=== PATIENT | male | born 1995 | race Asian ===

== ENCOUNTER 2018-11-29 19:46 | Inpatient (IN) | payer SELFPAY ==
[~2018-11-29] VITALS: Ht 182.9 cm; Wt 68.9 kg
--- NOTE | 2018-11-29 20:42 | NUR ---
BIBSELF C/O ABDOMINAL PAIN X3 HOURS. +VOMITTING, ALSO C/O SCROTUM SWELLING. PT AAOX4, VSS. PT SEEN & EVAL'D BY LAILA HECK. WILL CONT TO MONITOR.
[2018-11-29] MEDS ORDERED: ONDANSETRON HCL/PF 4 MG/2 ML VIAL ONE (20:44)
[2018-11-29] MEDS ORDERED: HYDROMORPHONE 1 MG/1 ML DISP.SYRIN ONE (20:44)
[2018-11-29] MEDS ORDERED: HYDROMORPHONE INJ 2 MG/ML DISP.SYRIN IV ONE (21:00)
[2018-11-29] MEDS ORDERED: IV NS 0.9% 1,000 ML BAG IV ONE (21:00)
[2018-11-29] MEDS ORDERED: ONDANSETRON HCL/PF 4 MG/2 ML VIAL IVP ONE (21:00)
--- NOTE | 2018-11-29 21:00 | NUR ---
MEDICATED PER HARVESTER OPERATOR ORDER, PT SERGEY WELL.
[2018-11-29 21:01] LABS: BASOPHILS % (AUTO) 0.2 % (0.0-2.0); EOSINOPHILS % (AUTO) 0.1 % (0.0-6.0); HEMATOCRIT 52 % (39-51); HEMOGLOBIN 17.2 g/dL (13.5-17.5); LYMPHOCYTES # (AUTO) 1.5 /CMM (0.8-4.8); LYMPHOCYTES % (AUTO) 9.3 % (20.0-44.0); MEAN CORPUSCULAR HGB CONC 33 g/dl (31.0-36.0); MEAN CORPUSCULAR VOLUME 82 fL (80-96); MONOCYTES # (AUTO) 0.9 /CMM (0.1-1.30); MONOCYTES % (AUTO) 5.5 % (2.0-12.0); NEUTROPHILS # (AUTO) 13.7 /CMM (1.8-8.9); NEUTROPHILS % (AUTO) 84.9 % (43.0-81.0); PLATELET COUNT (AUTO) 280 /CMM (150-450); RED BLOOD CELL COUNT(AUTO) 6.29 MIL/uL (4.5-6.0); WHITE BLOOD COUNT (AUTO) 16.2 K/uL (4.3-11.0)
[2018-11-29 21:11] LABS: CALCIUM, SERUM 9.7 mg/dL (8.5-10.1); CREATININE 1.1 mg/dL (0.6-1.3)
--- NOTE | 2018-11-29 23:40 | NUR ---
PT MOVED FROM BED 12 TO ER 1
--- NOTE | 2018-11-29 23:43 | NUR ---
PT RESTING, ABD PAIN 5/10 & BETTER PER PT. DENIES CP, SOB, DIZZINESS, N/V AT THIS TIME. WILL CONT TO MONITOR.
--- NOTE | 2018-11-29 23:52 | NUR ---
PT IS GOING TO CT.
--- NOTE | 2018-11-30 00:10 | NUR ---
PT RETURNED FROM CT.
--- NOTE | 2018-11-30 01:04 | NUR ---
PT APPEARS TO BE RESTING COMFORTABLY. PT'S FRIEND IS AT THE BEDSIDE.
[2018-11-30] MEDS ORDERED: PIPERACILLIN /TAZOBACTAM 3.375 G VIAL IV ONE (01:29)
[2018-11-30] MEDS ORDERED: MAGNESIUM HYDROXIDE 30 ML UDC PO PRN (01:30)
[2018-11-30] MEDS ORDERED: ACETAMINOPHEN 325 MG TABLET PO PRN (01:30)
[2018-11-30] MEDS ORDERED: Z GUARD REMEDY 2 OZ OINT TP PRN (01:30)
[2018-11-30] MEDS ORDERED: HYDROCODONE/APAP 5/325MG 1 EACH TABLET PO PRN (01:30)
[2018-11-30] MEDS ORDERED: HYDROMORPHONE 1 MG/1 ML DISP.SYRIN IV ONE (01:30)
[2018-11-30] MEDS ORDERED: ONDANSETRON HCL/PF 4 MG/2 ML VIAL IVP PRN (01:30)
[2018-11-30] MEDS ORDERED: IV D5/0.45 NACL 1,000 ML IV ONE (01:30)
[2018-11-30] MEDS ORDERED: ZOLPIDEM TARTRATE 5 MG TABLET PO PRN (01:30)
[2018-11-30] MEDS ORDERED: MAG HYDROX/AL HYDROX/SIMETH 30 ML UDC PO PRN (01:30)
[2018-11-30] MEDS ORDERED: MORPHINE SULFATE INJ 2 MG/ML DISP.SYRIN IV PRN (01:30)
[2018-11-30] MEDS ORDERED: PIPERACILLIN /TAZOBACTAM 3.375 G in IV D5W 50 ML IV ONE (01:30)
[2018-11-30] MEDS ORDERED: HYDROMORPHONE 1 MG/1 ML DISP.SYRIN ONE (01:31)
--- NOTE | 2018-11-30 01:50 | NUR ---
PT C/O NAUSEA AFTER DILAUDID ADMINISTRATION. MD AWARE. PER VERBAL MD ORDER, WILL ADMINISTER ZOFRAN 4MG IV X1 NOW
--- NOTE | 2018-11-30 01:52 | NUR ---
CALLING REPORT TO MS NURSE. PT IS GOING TO 119-2
--- NOTE | 2018-11-30 01:56 | NUR ---
REPORT GIVEN TO ZOHREH SALVADOR
--- NOTE | 2018-11-30 02:10 | NUR ---
RN MS ADMITTING NOTES RECEIVED PT VIA ANA M, PT AWAKE ALERT ORIENTED X4, BREATHING EVEN AND UNLABORED ON ROOM AIR, NO SOB OR CONGESTION. IV ACCESS ON THE L AC 20G WITH D5 1/2 NS @125ML/HR. REPORTS ABDOMINAL PAIN OF 4/10 AT THE MOMENT, SCROTUM SWELLING REPORTED TO HAVE GONE DOWN. BED IN LOWEST LOCKED POSITION, CALL LIGHT WITHIN REACH AT ALL TIMES, WILL MAINTAIN NPO. WILL CONTINUE TO MONITOR.
--- NOTE | 2018-11-30 06:11 | NUR ---
RN MS CLOSING NOTES PT REMAINS IN BED, SLEEPING EASILY AROUSED TO NAME CALL, PARTNER AT BEDSIDE. BREATHING EVEN AND UNLABORED ON ROOM AIR, NO SOB OR CONGESTION. IV ACCESS ON THE L AC 20G WITH D5 1/2 NS @125ML/HR. IN NO APPARENT PAIN OR DISCOMFORT AT THE MOMENT. BED IN LOWEST LOCKED POSITION, CALL LIGHT WITHIN REACH AT ALL TIMES, REMAINS NPO. WILL ENDORSE TO DAY NURSE FOR TOMMY
--- NOTE | 2018-11-30 07:10 | NUR ---
MS RN NOTES PATIENT IN BED ALERT ORIENTED X 4. NO ACUTE DISTRESS NOTED. BREATHING UNLABORED. NO SOB NOTED. IV ACCESS PATENT AND INTACT, NO REDNESS OR SWELLING NOTED. SAFETY MEASURES IN PLACE. CALL LIGHT WITHIN REACH. WILL CONTINUE TO MONITOR ACCORDINGLY.
[2018-11-30 08:00] VITALS: BP 109/71
[2018-11-30 08:43] LABS: CALCIUM, SERUM 8.5 mg/dL (8.5-10.1); CREATININE 1.1 mg/dL (0.6-1.3)
[2018-11-30] MEDS ORDERED: PANTOPRAZOLE 40 MG VIAL IV SCH (09:00)
[2018-11-30 09:41] LABS: HEMATOCRIT 46 % (39-51); HEMOGLOBIN 15.1 g/dL (13.5-17.5); MEAN CORPUSCULAR VOLUME 82 fL (80-96); RED BLOOD CELL COUNT(AUTO) 5.63 MIL/uL (4.5-6.0); WHITE BLOOD COUNT (AUTO) 12.3 K/uL (4.3-11.0)
[2018-11-30 09:42] LABS: BASOPHILS % (AUTO) 0.1 % (0.0-2.0); LYMPHOCYTES # (AUTO) 1.1 /CMM (0.8-4.8); LYMPHOCYTES % (AUTO) 9.1 % (20.0-44.0); MEAN CORPUSCULAR HGB CONC 33 g/dl (31.0-36.0); MONOCYTES # (AUTO) 0.9 /CMM (0.1-1.30); MONOCYTES % (AUTO) 7.6 % (2.0-12.0); NEUTROPHILS # (AUTO) 10.2 /CMM (1.8-8.9); NEUTROPHILS % (AUTO) 83.2 % (43.0-81.0); PLATELET COUNT (AUTO) 298 /CMM (150-450)
[2018-11-30] MEDS: FAMOTIDINE/PF INJ 20 MG/2 ML VIAL IV SCH ×2 (09:50→17:36)
[2018-11-30] MEDS: IV D5/0.45 NACL 1,000 ML IV PRN ×2 (09:51→18:08)
[2018-11-30 16:00] VITALS: BP 118/71
--- NOTE | 2018-11-30 19:00 | NUR ---
MS RN NOTES PATIENT IN BED ALERT ORIENTED X 4. NO ACUTE DISTRESS NOTED. BREATHING UNLABORED. NO SOB NOTED. IV ACCESS PATENT AND INTACT, NO REDNESS OR SWELLING NOTED. DUE MEDICATIONS GIVEN, NO ASE NOTED. NEEDS ATTENDED AND ANTICIPATED. SAFETY MEASURES IN PLACE. CALL LIGHT WITHIN REACH. ENDORSED TO NIGHT NURSE FOR CONTINUITY OF CARE.
--- NOTE | 2018-11-30 19:30 | NUR ---
RECEIVED PATIENT IN BED AWAKE. AO X 3, ABLE TO MAKE NEEDS KNOWN. NO ACUTE DISTRESS NOTED. MONITORED FOR PAIN. IV SITE PATENT, INTACT; IVF INFUSING ORDERED. SAFETY REMINDERS GIVEN. ON LOW BED WITH BILATERAL UPPER SIDE RAILS UP. CALL SAMPSON WITHIN EASY REACH. WILL CONTINUE TO MONITOR.
[2018-11-30 20:00] VITALS: BP 114/70
[2018-11-30] MEDS: PANTOPRAZOLE 40 MG TABLET.DR PO SCH (22:26)
[2018-12-01] MEDS: IV D5/0.45 NACL 1,000 ML IV PRN (02:16)
[2018-12-01 04:00] VITALS: BP_SYST 110; BP_SYST 114; BP_DIAS 68; BP_DIAS 70
[2018-12-01] MEDS ORDERED: PIPERACILLIN /TAZOBACTAM 3.375 G VIAL IV ONE (04:56)
[2018-12-01] MEDS ORDERED: PIPERACILLIN /TAZOBACTAM 3.375 G in IV D5W 50 ML IV SCH (05:00)
--- NOTE | 2018-12-01 06:32 | NUR ---
PATIENT ASLEEP, EASILY AROUSABLE. RESPIRATIONS EVEN. NO SIGNS OF PAIN NOTED. DUE MED GIVEN WITH NO ASE NOTED. IVF INFUSING ORDERED. NEEDS ATTENDED. SAFETY PRECAUTIONS AND COMFORT MEASURES IN PLACE. WILL GIVE REPORT TO DAY SHIFT FOR CONTINUITY OF CARE.
[2018-12-01 06:37] LABS: BASOPHILS % (AUTO) 0.3 % (0.0-2.0); EOSINOPHILS % (AUTO) 0.4 % (0.0-6.0); HEMATOCRIT 40 % (39-51); HEMOGLOBIN 13.5 g/dL (13.5-17.5); LYMPHOCYTES # (AUTO) 2.5 /CMM (0.8-4.8); LYMPHOCYTES % (AUTO) 26.3 % (20.0-44.0); MEAN CORPUSCULAR HGB CONC 33 g/dl (31.0-36.0); MEAN CORPUSCULAR VOLUME 82 fL (80-96); MONOCYTES % (AUTO) 10.7 % (2.0-12.0); NEUTROPHILS # (AUTO) 5.8 /CMM (1.8-8.9); NEUTROPHILS % (AUTO) 62.3 % (43.0-81.0); PLATELET COUNT (AUTO) 242 /CMM (150-450); RED BLOOD CELL COUNT(AUTO) 4.92 MIL/uL (4.5-6.0); WHITE BLOOD COUNT (AUTO) 9.4 K/uL (4.3-11.0)
[2018-12-01 06:47] LABS: ALBUMIN 3.2 g/dL (3.4-5.0); BILIRUBIN,TOTAL 0.6 mg/dL (0.2-1.0); CALCIUM, SERUM 8.3 mg/dL (8.5-10.1); MAGNESIUM 1.9 mg/dL (1.8-2.4); PHOSPHORUS 2.9 mg/dL (2.5-4.9); POTASSIUM 3.3 mmol/L (3.5-5.1); TOTAL PROTEIN, SERUM 6.4 g/dL (6.4-8.2)
[2018-12-01 08:00] VITALS: BP_SYST 114; BP_SYST 132; BP_DIAS 66; BP_DIAS 68; BP_DIAS 76
[2018-12-01] MEDS: PANTOPRAZOLE 40 MG TABLET.DR PO SCH (09:10)
[2018-12-01] MEDS: PIPERACILLIN /TAZOBACTAM 3.375 G in IV D5W 100 ML IV SCH ×2 (09:26→18:00)
[2018-12-01] MEDS ORDERED: POTASSIUM CL. PREMIX PERIPHER. 50 ML IV SCH (09:31)
--- NOTE | 2018-12-01 10:30 | NUR ---
PER DNP JORGE PT WILL START ON FULL LIQUID DIET AND ADVANCE TO REGULAR IF TOLERATED
--- NOTE | 2018-12-01 13:30 | NUR ---
PATIENT TOLERATED DIET WELL WITH NO PAIN
[2018-12-01] MEDS ORDERED: LANS30CA54 PO (15:04)
[2018-12-01] MEDS ORDERED: CEPH-570 PO (15:05)
[2018-12-01 16:00] VITALS: BP 109/67
--- NOTE | 2018-12-01 18:58 | NUR ---
PATIENT CLEARED FOR D/C TO HOME BY . PATIENT ALERT AND ORIENTED X4 , BREATHING UNLABORED AND EVEN ON ROOM AIR, PT TOLERATED REGULAR DIET WELL WITH NO PAIN. DISCHARGE INSTRUCTIONS AND EDUCATION PROVIDED; PATIENT VERBALIZED UNDERSTANDING. PRESCRIPTION PROVIDED, PATIENT EDUCATED. PATIENT WILL F/U WITH PCP IN 2 WEEKS. PATIENT'S INTACT. D/C PAPERS SIGHED ;ALL BELONGINGS WITH THE PATIENT. AWAITING FOR PATIENTS'S FRIEND FOR PLAY LEADER.
--- NOTE | 2018-12-01 19:25 | NUR ---
RHEOSTAT ASSEMBLER DISCHARGE NOTES: AM SHIFT ENDORSED REPORT TO ME REGARDING HIS FRIEND COMING TO PICK HIM UP FOR DISCHARGE. ALL PAPER WORK AND D/C DONE BY AM NURSE. IV AND WRIST BAND REMOVED. ALL BELONGINGS GIVEN AND D/C PAPER WORK SIGNED BY PT. PT STABLE AND IN GOOD CONDITION UPON DISCHARGE AT 1924 WHEN FRIEND CAME TO AIRPORT BAGGAGE SCREENER AND TAKE HIM HOME.
== END 2018-12-01 23:45 | disposition home or self-care (01) | DRG 391 ==
LOC: ER 19:49 → MEDSG1 11-30 01:44
PROVIDERS: ADMIT Nurse Practitioner Acute Care; ATTEND Nurse Practitioner Acute Care
DX: K29.80 Duodenitis without bleeding (principal); K85.90 Acute pancreatitis without necrosis or infection, unspecified; K59.00 Constipation, unspecified; N50.89 Other specified disorders of the male genital organs; E86.0 Dehydration
CPT/HCPCS: 36415; 76870-TC; 80048-TC; 80053-TC; 80061-TC; 83690-TC; 83735-TC; 84100-TC; 85025-TC; 85730-TC; G0378; J1170; J2270; J2405; J2543; J3480; J3490; J7050; J7060

== ENCOUNTER 2018-12-06 21:10 | Emergency (ER) | payer BC ==
[~2018-12-06] VITALS: Ht 182.9 cm; Wt 68.0 kg
[~2018-12-06 21:10] MED LIST: CEPH-570 PO; LANS30CA54 PO
--- NOTE | 2018-12-06 23:18 | NUR ---
BIBS. C/O "WAS SEEN FOR PANCREATITIS LAST WEEK, I THINK IT MIGHT BE FLARING UP. -DYSURIA" AOX4 AMBULATORY. VSS
--- NOTE | 2018-12-06 23:28 | NUR ---
URINE COLLECTED AND SENT TO LAB
[2018-12-06] MEDS ORDERED: ONDANSETRON HCL/PF 4 MG/2 ML VIAL ONE (23:51)
[2018-12-06] MEDS ORDERED: MORPHINE SULFATE INJ 4 MG/ML DISP.SYRIN ONE (23:51)
[2018-12-07] MEDS ORDERED: MORPHINE SULFATE INJ 2 MG/ML DISP.SYRIN IV ONE
[2018-12-07] MEDS ORDERED: IV NS 0.9% 1,000 ML BAG IV ONE
[2018-12-07] MEDS ORDERED: ONDANSETRON HCL/PF 4 MG/2 ML VIAL IVP ONE
[2018-12-07 00:05] LABS: BASOPHILS % (AUTO) 0.2 % (0.0-2.0); HEMATOCRIT 51 % (39-51); HEMOGLOBIN 16.9 g/dL (13.5-17.5); LYMPHOCYTES # (AUTO) 0.8 /CMM (0.8-4.8); LYMPHOCYTES % (AUTO) 6.4 % (20.0-44.0); MEAN CORPUSCULAR HGB CONC 33 g/dl (31.0-36.0); MEAN CORPUSCULAR VOLUME 82 fL (80-96); MONOCYTES # (AUTO) 0.2 /CMM (0.1-1.30); NEUTROPHILS # (AUTO) 10.9 /CMM (1.8-8.9); NEUTROPHILS % (AUTO) 91.4 % (43.0-81.0); PLATELET COUNT (AUTO) 345 /CMM (150-450); RED BLOOD CELL COUNT(AUTO) 6.25 MIL/uL (4.5-6.0); WHITE BLOOD COUNT (AUTO) 11.9 K/uL (4.3-11.0)
[2018-12-07 00:14] LABS: CALCIUM, SERUM 8.9 mg/dL (8.5-10.1); CREATININE 0.9 mg/dL (0.6-1.3)
[2018-12-07 00:17] LABS: ALBUMIN 3.8 g/dL (3.4-5.0); BILIRUBIN,DIRECT 0.1 mg/dL (0.0-0.2); BILIRUBIN,TOTAL 0.5 mg/dL (0.2-1.0)
[2018-12-07 02:40] VITALS: BP 122/74
== END 2018-12-07 02:41 | disposition home or self-care (01) ==
LOC: ER 21:16
DX: R10.84 Generalized abdominal pain (principal); R11.2 Nausea with vomiting, unspecified
CPT/HCPCS: 36415; 80048; 80076; 83690; 85025; 96361; 96374; 96375; 99283; J2270; J2405; J7030